=== PATIENT | female | born 1955 | race Caucasian/White ===

== ENCOUNTER 2017-08-20 17:14 | Inpatient (IN) | payer OTHER ==
[~2017-08-20] VITALS: Ht 165.1 cm; Wt 108.9 kg
[~2017-08-20 17:14] MED LIST: ANTIVERT25 MG PO; ASPIRIN EC325 M2 PO; BENADRYL25 MG PO; CLONAZEPAM2 M2 PO; COLACE100 M1 PO; HYDROCODON-ACE1 EAC3 PO; HYDROXYZINE HCL25 M2 PO; MIRALAX17 G1 PO; OXYCODONE HCL10 M2 PO; OXYCONTIN10 M1 PO; PERCOCET 5-3251 EACH PO; TRAZODONE HCL300 M1 PO; TRIAMCINOLONE A15 G3 TOP
[2017-08-20] MEDS ORDERED: OXYCODONE-ACET1 EAC1 PO (19:50)
[2017-08-20] MEDS ORDERED: ASPIRIN EC325 M2 PO (19:51)
[2017-08-20] MEDS ORDERED: MOVANTIK12.5 M1 PO (19:51)
[2017-08-20] MEDS ORDERED: MELATONIN10 M5 PO (19:52)
--- NOTE | 2017-08-20 20:40 | RADIOLOGY REPORT ---
EXAMINATION: XR HAND, RIGHT CLINICAL INFORMATION: Swelling, tenderness in the right hand. Fracture. COMPARISON: None TECHNIQUE: PA, lateral, and oblique views of the right hand. FINDINGS: Soft tissue swelling is present at the thumb and, to a lesser extent, other portions of the hand. No fracture or malalignment. Bones are osteopenic. There is mild to moderate osteoarthritis at the first CMC joint. More minimal osteophyte is present at the thumb MCP and interphalangeal joints. Cortical irregularity at the fifth metacarpal shaft may be due to an old healed fracture. No erosions. No soft tissue calcifications. IMPRESSION: Swelling in the right hand, most notably at the thumb. No acute osseous abnormalities. Mild multifocal osteoarthritis, most pronounced at the first CMC joint.
[2017-08-20 21:35] LABS: ABSOLUTE BASOPHIL COUNT 0 /CUMM (0.0-0.2); ABSOLUTE EOSINOPHIL COUNT 0.2 /CUMM (0.0-0.7); ABSOLUTE GRANULOCYTE CT 2.6 /CUMM (1.4-6.5); ABSOLUTE MONOCYTE COUNT 0.3 /CUMM (0.10-0.60); BASOPHIL % 0.9 % (0.0-2.0); EOSINOPHIL % 3.7 % (0-5); GRANULOCYTE % 63.3 % (42.2-75.2); MEAN CORPUSCULAR HGB 26.9 PG (27.0-31.0); MEAN CORPUSCULAR HGB CONC 32.9 G/DL (33.0-37.0); MEAN CORPUSCULAR VOLUME 81.7 FL (81.0-99.0); MEAN PLATELET VOLUME 8.4 FL (7.4-10.4); PLATELET COUNT 237 /CUMM (130-400); RBC DISTRIBUTION WIDTH 15.1 % (11.5-14.5); WHITE BLOOD CELL COUNT 4.1 /CUMM (4.8-10.8)
--- NOTE | 2017-08-20 21:44 | ED GENERAL ADULT ---
History of Present Illness General Chief Complaint: Hand or Wrist Injury Stated Complaint: PT RT HAND HAS CELLULITIS Source: patient Exam Limitations: no limitations Vital Signs & Intake/Output Vital Signs & Intake/Output Vital Signs Date Time Temp Pulse Resp B/P B/P Pulse O2 O2 Flow FiO2 Mean Ox Delivery Rate 08/21 0212 98.3 93 18 132/64 95 Room Air 08/21 0049 98.8 88 18 132/84 99 Room Air 08/20 2217 98 Room Air 08/20 1737 98.8 97 18 134/84 98 Room Air ED Intake and Output 08/21 0000 08/20 1200 Intake Total Output Total Balance Patient 240 lb Weight Weight Reported by Patient Measurement Method Allergies Coded Allergies: metronidazole (From FLAGYL) (Severe, RASH 08/20/17) cephalexin (From KEFLEX) (HANDS AND FEET HOT 06/07/15) levofloxacin (From LEVAQUIN) (SUPRA-PUBIC PAIN 06/07/15) Reconcile Medications Aspirin (Ecotrin*) 325 MG TABLET.DR 1 TAB PO DAILY HEART/BLOOD (Reported) Clonazepam 2 MG TABLET 1 TAB PO QPM SLEEP (Reported) Melatonin 10 MG CAPSULE 1 CAP PO DAILY SUPPLEMENT (Reported) Naloxegol Oxalate (Movantik) 12.5 MG TABLET 1 TAB PO PRN GI (Reported) Oxycodone HCl/Acetaminophen (Oxycodone-Acetaminophen 10-325) 10 MG-325 MG TABLET 1 TAB PO 4XDP PRN PAIN (Reported) Trazodone HCl 300 MG TABLET 1 TAB PO QPM SLEEP (Reported) Triage Note: 62 YO FEMALE TO TRIAGE FOR EVAL OF R HAND. STATES WAS SEEN ON WEDNESDAY FOR THE URGENT CARE FOR WHAT SHE THOUGHT WAS EITHER A SPIDER BITE OR A BURN TO HER R HAND. REPORTS SHE GOT A TETANUS AND SENT HOME ON ANTIBITIOCS. REPORTS SWELLING IS BETTER BUT PAIN TO HADN HAS INCREASED. Triage Nurses Notes Reviewed? yes Onset: Abrupt Duration: day(s): (5), constant, continues in ED, getting worse Timing: single episode today Injury Environment: home Severity: mild, moderate Severity Numbers: 7 No Modifying Factors: none LMP (ages 10-50): unknown : No Patient currently breastfeeds: No HPI: 61-year-old female history of hypertension presents for evaluation of pain and swelling in her right hand. Patient reports symptoms have been present for the past 5 days and getting worse. Patient reports that she is unsure what caused the symptoms initially. She takes maybe she was bitten by a spider or suffered a minor burn. She states she went to an urgent care when symptoms first started was placed on Bactrim which he took for 5 days of any improvement. The redness is getting the spread the pain is getting worse. She is able to move her fingers without much difficulty. She has not had fevers he is not a diabetic. No discharge. No numbness or tingling (Tejinder Hartmann) Past History Travel History Traveled to [place] past 21 day No Medical History Any Pertinent Medical History? see below for history Cardiovascular: hypertension Respiratory: bronchitis Gastrointestinal: GERD, irritable bowel syndrome Endocrine: obesity History of MRSA: No History of VRE: No History of CDIFF: No Surgical History Surgical History: knee replacement Psychosocial History Who do you live with Spouse What is your primary language [place]an Tobacco Use: Never used Family History Hx Contributory? No (Tejinder Hartmann) Review of Systems Review of Systems Constitutional: Reports: no symptoms. EENTM: Reports: no symptoms. Respiratory: Reports: no symptoms. Cardiovascular: Reports: no symptoms. GI: Reports: no symptoms. Genitourinary: Reports: no symptoms. Musculoskeletal: Reports: see HPI, joint pain, joint swelling. Skin: Reports: see HPI, erythema. Neurological/Psychological: Reports: no symptoms. Hematologic/Endocrine: Reports: no symptoms. Immunologic/Allergic: Reports: no symptoms. All Other Systems: Reviewed and Negative (Tejinder Hartmann) Physical Exam Physical Exam General Appearance: well developed/nourished, no apparent distress, alert, awake Head: atraumatic, normal appearance Eyes: Bilateral: normal appearance, PERRL, EOMI. Ears, Nose, Throat: hearing grossly normal Neck: normal inspection, supple, full range of motion Respiratory: normal breath sounds, chest non-tender, no respiratory distress, lungs clear Cardiovascular: regular rate/rhythm, normal peripheral pulses Peripheral Pulses: 2+ radial (R), 2+ radial (L) Gastrointestinal: soft, non-tender Back: normal inspection, normal range of motion, no vertebral tenderness Extremities: normal range of motion, THE RIGHT HAND IS DIFFUSELY SWOLLEN AND TENDER TO PALPATION. tHERE IS ERYTHEMA TRACKING UP THE HAND TO THE WRIST. fULL RANGE OF MOTION OF THE WRIST AND HAND IS INTACT. nO LYMPHATIC STREAKING NO FOCAL FLUCTUANT AREAS Neurologic/Psych: no motor/sensory deficits, awake, alert, oriented x 3, normal gait, normal mood/affect Skin: intact, normal color, warm/dry Lymphatic: no anterior cervical chirag Core Measures ACS in differential dx? No CVA/TIA Diagnosis: No Sepsis Present: No Sepsis Focused Exam Completed? No (Raghavendra LOZA,Tejinder) Progress Differential Diagnoses I considered the following diagnoses in my evaluation of the patient: [ Cellulitis tenosynovitis abscess DVT sepsis] Plan of Care: Orders Procedure Date/time Status Nothing by Mouth 08/21 B Active CBC WITHOUT DIFFERENTIAL 08/21 599 Active BASIC ELECTROLYTES PLUS BUN&CR 08/21 599 Active Weight 08/21 116 Complete Vital Signs 08/21 116 Complete Teach/Educate 08/21 116 Active Pain Treatment and Response 08/21 116 Active Nutritional Intake, Monitor 08/21 116 Active Isolation 08/21 116 Active Intake & Output 08/21 116 Active Patient Care Conference 08/21 116 Active Activity/Ambulation 08/21 116 Active Pathway - chart 08/20 2343 Active Patient Data 08/20 2302 Active Saline Lock 08/20 230 Active Misc Message 08/20 230 Active ED Holding Orders 08/20 230 Active Admit to inpatient 08/20 230 Active Vital Signs 08/20 230 Active Code Status 08/20 230 Active Intake & Output 08/20 2217 Complete Add-on Test (ER Only) 08/20 2206 Active EKG 08/20 2206 Active TROPONIN LEVEL 08/20 2124 Complete BLOOD CULTURE 08/20 1924 Active LACTIC ACID 08/20 1924 Complete COMPREHENSIVE METABOLIC PANEL 08/20 1924 Complete CBC WITHOUT DIFFERENTIAL 08/20 1924 Complete House Staff 08/20 UNK Active VTE Mechanical Prophylaxis 08/20 UNK Active Vital Signs 08/20 UNK Complete Intake & Output 08/20 UNK Active Activity/Ambulation 08/20 UNK Active Current Medications Sig/Ange Start time Last Medication Dose Stop Time Status Admin Trazodone HCl 300 MG QPM 08/21 2100 AC (Desyrel) Aspirin Buffered 325 MG DAILY 08/21 09 AC (Ecotrin) Enoxaparin Sodium 40 MG DAILY 08/21 09 AC (Lovenox) Ampicillin Sodium/ 3,000 MG Q6 08/21 06 AC Sulbactam Sodium (Unasyn) Sodium Chloride 100 ML (Normal Saline 0.9%) Acetaminophen 650 MG Q6P PRN 08/20 2344 AC (Tylenol) Clonazepam 2 MG QPM 08/20 2344 AC 08/21 (Klonopin 1MG Tab) 08/28 2343 020 Melatonin 10 MG QPM 08/20 234 AC 08/21 (Melatonin) 0200 Oxycodone/ 2 TAB Q6P PRN 08/20 2344 AC 08/21 Acetaminophen 0138 (Percocet) Laboratory Tests 08/20/17 2317: Lactic Acid Cancelled 08/20/17 2225: Lactic Acid Cancelled 08/20/175: Anion Gap 13, Estimated GFR > 60, BUN/Creatinine Ratio 12.5, Glucose 102 H, Lactic Acid 0.9, Calcium 9.4, Total Bilirubin 0.4, AST 40 H, ALT 57 H, Alkaline Phosphatase 143 H, Troponin I < 0.01, Total Protein 7.4, Albumin 4.0, Globulin 3.4, Albumin/Globulin Ratio 1.2, CBC w Diff NO MAN DIFF REQ, RBC 4.90, MCV 81.7, MCH 26.9 L, MCHC 32.9 L, RDW 15.1 H, MPV 8.4, Gran % 63.3, Lymphocytes % 25.2, Monocytes % 6.9, Eosinophils % 3.7, Basophils % 0.9, Absolute Granulocytes 2.6, Absolute Lymphocytes 1.0 L, Absolute Monocytes 0.3, Absolute Eosinophils 0.2, Absolute Basophils 0 08/20/17 2017: Lactic Acid Cancelled Microbiology 08/20 2044 BLOOD: Blood Culture - RECD 08/20 2029 BLOOD: Blood Culture - RECD Patient is here with cellulitis of the right hand. She failed outpatient treatment with Bactrim. Is no purulent discharge she is afebrile. Labs were obtained did not show anything acute findings. Consider tenosynovitis but patient's range of motion is maintained without much difficulty. Patient will require admission to the hospital for further evaluation and treatment of cellulitis. Patient started on Unasyn. Case discussed with Dr. Mckeon he agrees. Initial ED EKG: normal sinus rhythm, RBBB, nonspecific ST T wave chg (DIFFUSE ) (Raghavendra LOZA,Tejinder) Departure Departure Disposition: STILL A PATIENT Condition: Stable Clinical Impression Primary Impression: Cellulitis Qualifiers: Site of cellulitis: extremity Site of cellulitis of extremity: upper extremity Laterality: right Qualified Code: L03.113 - Cellulitis of right upper limb Referrals: Aristeo Trinidad MD (PCP/Family) Departure Forms: Customer Survey General Discharge Information Admission Note Spoke With: Nils Amaro MD Documentation of Exam: Documentation of any treatments & extenuating circumstances including Concerns Regarding Discharge (functional status, medication knowledge or non-compliance, living conditions, etc.) that warrant an admission rather than observation: [ Serial labs, IV antibiotics, hand surgery, follow-up cultures patient is failed outpatient treatment. She'll require IV antibiotics] (Tejinder Hartmann) PA/BUSINESS PROFESSOR Co-Sign Statement Statement: ED Attending supervision documentation- [x] I saw and evaluated the patient. I have also reviewed all the pertinent lab results and diagnostic results. I agree with the findings and the plan of care as documented in the PA's/BUSINESS PROFESSOR's documentation. 08/20/17, 22:23... pt with right redness, tenderness, swelling, having failed out patient abx, merits iv abx, admssion [] I have reviewed the ED Record and agree with the PA's/BUSINESS PROFESSOR's documentation. [] Additions or exceptions (if any) to the PAs/BUSINESS PROFESSOR's note and plan are summarized below: [] (Linda LOPEZ,Amor Son) Critical Care Note Critical Care Note Critical Care Time: non-applicable (Tejinder Hartmann)
--- NOTE | 2017-08-20 23:36 | History & Physical ---
Micky Singh 08/20/17 8785: General Information and HPI MD Statement: I have seen and personally examined ENE FAULKNER and documented this H&P. The patient is a 62 year old F who presented with a patient stated chief complaint of [r hand swelling and pain x 1 week]. Source of Information: patient History of Present Illness: Ene Faulkner is a 62-year-old female with a past medical history of hypertension, GERD, IBS, obesity, presented to the ED with a one-week history of right hand pain, tenderness, erythema, swelling. Patient states that she thought she either burned, or had an insect bite, interspace region between her first and second digit of her right hand. She cannot remember discrete puncture or trauma to the region. Her hand, however began to turn red, and had some localized swelling. The skin also began to slough off. She decided to go to an urgent care center on Wednesday, where she received a tetanus shot and prescribed her Bactrim for 4 days. She completed the course, however her hand continued to swell, and started extending proximally towards the wrist, the pain increased, and the hand became "hotter". She came to the ED as she was worried that she might have necrotizing fasciitis. Onsetapproximately 1 week ago. Progressively getting worse. Provocation/palliationoxycodone helps the pain. Patient has back issues and her prescribed oxycodone comes the pain for her. Qualitypatient describes the pain as "achy" Radiationthe pain travels from the interspace region between the first and second digit into the digits themselves, has not traveled approximately towards the wrist. Severitypain was initially a 3, has progressed to a 6 or a 7 currently Timepain is constant, does not wax or wane. Has not noticed a temporal relationship with the pain. Patient denies fevers, chills, night sweats, headaches, any identifiable trauma to the region. Past History Travel History Traveled to [place] past 21 day No Medical History Cardiovascular: hypertension Respiratory: bronchitis Gastrointestinal: GERD, irritable bowel syndrome Endocrine: obesity History of MRSA: No History of VRE: No History of CDIFF: No Tetanus Vaccine: 08/16/17 (per patient) Tetanus Status: up to date Surgical History Surgical History: knee replacement Past Family/Social History Psychosocial History Smoking Status: Never Smoked ETOH Use: occasional use Illicit Drug Use: denies illicit drug use Living Will? 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 Ambulation: independent IADLs Independent: shopping, housework, finances, food prep, telephone, transportation , medication admin. Employment History Profession/Employer Psychotherapist Review of Systems Review of Systems Constitutional: Reports: see HPI. Exam & Diagnostic Data Last 24 Hrs of Vital Signs/I&O Vital Signs Date Time Temp Pulse Resp B/P B/P Pulse O2 O2 Flow FiO2 Mean Ox Delivery Rate 08/20 2217 98 Room Air 08/20 1737 98.8 97 18 134/84 98 Room Air Physical Exam General Appearance Alert, Oriented X3, Cooperative, No Acute Distress Skin Erythema R hand ascending proxmally towards wrist, Swelling,Heat to dorsum of R hand Skin Temp/Moisture Exam: Hot/Dry Cardiovascular Regular Rate, Normal S1, Normal S2 Lungs Clear to Auscultation, Normal Air Movement Abdomen Soft, No Tenderness, obese Neurological Normal Tone, Sensation Intact Extremities Normal Pulses, limited adduction and flexion of R thumb 2/2 pain/ swelling Vascular Normal Pulses Last 24 Hrs of Labs/Flaco: Laboratory Tests 08/20/17 2317: Lactic Acid Cancelled 08/20/17 2225: Lactic Acid Cancelled 08/20/172124: Anion Gap 13, Estimated GFR > 60, BUN/Creatinine Ratio 12.5, Glucose 102 H, Lactic Acid 0.9, Calcium 9.4, Total Bilirubin 0.4, AST 40 H, ALT 57 H, Alkaline Phosphatase 143 H, Troponin I < 0.01, Total Protein 7.4, Albumin 4.0, Globulin 3.4, Albumin/Globulin Ratio 1.2, CBC w Diff NO MAN DIFF REQ, RBC 4.90, MCV 81.7, MCH 26.9 L, MCHC 32.9 L, RDW 15.1 H, MPV 8.4, Gran % 63.3, Lymphocytes % 25.2, Monocytes % 6.9, Eosinophils % 3.7, Basophils % 0.9, Absolute Granulocytes 2.6, Absolute Lymphocytes 1.0 L, Absolute Monocytes 0.3, Absolute Eosinophils 0.2, Absolute Basophils 0 08/20/17 2017: Lactic Acid Cancelled Microbiology 07/06 2045 BLOOD: Blood Culture - RECD 08/20 2029 BLOOD: Blood Culture - RECD Diagnostic Data Other Results IMPRESSION: Swelling in the right hand, most notably at the thumb. No acute osseous abnormalities. Mild multifocal osteoarthritis, most pronounced at the first CMC joint. Assessment/Plan Assessment: Ene Faulkner is a 62-year-old female with a past medical history of hypertension, GERD, IBS, obesity, presented to the ED with a one-week history of right hand pain, tenderness, erythema, swelling. Being treated for cellulitis that failed outpatient therapy. Differentials include Cellulitis, Osteomyelitis, Erysipalas, Compartment syndrome (doubt), Necrotizing fasciitis (doubt), Abscess Patient did not have systemic signs or radiographic evidence of osteomyelitis. Patient also did not have any pain upon passive range of motion. Pt did not have any fluctuant areas. Erythematous areas were smooth, flat; not sandpaper-like. #Cellulitis failed outpatient therapy: due to the fact that patient took a coure of bactrim without improvement, patient will be admitted for IV antibiotics for R hand cellulitis. -Admit to general medicine floors -IV Unasyn, recieved one dose in the ED. Will continue course, adjust pending culture results. -Pt states an allergy to Keflex and levaquin-will tailor antibiotic choice when switching to PO. -Follow up on culture. -Pt has sharp line of demarcation between erythema and normal skin. Will gretta line, monitor progression or regression of erythema -Xray shows no evidence of osteomyelitis, no evidence of acute trauma -Afebrile, no leukocytosis, no systemic signs #Back Pain -will restart home meds DVT ppx + ALPS Disposition Regular Diet IV Access: Peripheral IV Full Code As Ranked By This Provider Problem List: 1. Cellulitis Qualifiers Site of cellulitis: extremity Site of cellulitis of extremity: upper extremity Laterality: right Qualified Code: L03.113 - Cellulitis of right upper limb Core Measures/Misc (11/01) Acute Coronary Syndrome ACS Diagnosis: No Congestive Heart Failure Congestive Heart Failure Diagnosis No Cerebrovascular Accident CVA/TIA Diagnosis: No VTE (View Protocol) VTE Risk Factors Age>40 No Mechanical VTE Prophylaxis d/t N/A MechProphylax Ordered No VTE Pharm Prophylaxis d/t NA PharmProphylax ordered Sepsis (View protocol) Sepsis Present: No If YES complete Sepsis Event Note If YES complete Sepsis Event Note Carney,Li Virgilio Sebastian 08/21/17 0133: Core Measures/Misc (11/01) Sepsis (View protocol) If YES complete Sepsis Event Note If YES complete Sepsis Event Note Resident Review Statement Resident Statement: examined this patient, discussed with internal medicine physician assistant, agreed with internal medicine physician assistant, discussed with family, reviewed EMR data (avail), discussed with nursing , discussed with case mgmt, reviewed images, amended to note Other Findings: Ms. Faulkner is a 62yo F w/ PMh of hypertension, GERD, IBS, obesity, presented to the ER with swelling of hands possibly due to burn/spider bite at R hand web region that later spreaded out to the whole right hand, and patient had failed outpatient treatment of bactrim x 4 days. During our clinical interaction, patient denied recent travel/sick contacts, fever/lightheadedness/diaphoresis/night sweat/weight change/cough/SOB/Chest Pain /Palpitation/Abdominal pain/bowel movement or urinary abnormality, or other skin /musculoskeletal/neurological/mood disorders, or dietary/appetite change. -Smoking: Denied -Alcohol: Social -Rec Drugs: Denied On admission, Vitals: Stable afebrile, BP 134/88, saturating 98% on RA Physical exam -Gen.: AO x3, cooperative, no distress, -HEENT: NCAT, PERRL, EOMI, anicteric sclera, moist mucous membranes -Cardio: Normal S1/S2 without significant murmurs/gallops/rubs -Pulmonary: grossly normal air movement w/ clear auscultation -Abdomen: Soft, nontender, nondistended, bowel sounds intact -Neuro: Awake and alert, cranial nerves II through XII grossly intact -Extremity: R hand swelling w/ mild tenderness on palpation, along w/ elevation of skin temperature, clear demarkation of swelling at wrist level, sensations grossly intact, fingers ROM mildly restricted however mostly due to pain. Other extremities are Normal pulses/capillary refill, no cyanosis/clubbing/edema -CBC: Mild leukopenia 4.1, H/H stable, otherwise unremarkable -BMP: Unremarkable -Hand X-ray: Swelling in the right hand, most notably at the thumb. No acute osseous abnormalities. -EKG: NSR w/o significant ST-T abnormalities. -Interventions in ER: Unasyn x 1 Problem list/Assessment/Hospital Course: #Right hand cellulitis, w/o signs of necrotizing fascitis/osteomyelitis #Mild Leukopenia #PMH of HTN, GERD, IBS - Admit to General medicine, vitals per protocol - Will start empiric coverage w/ Unasyn 3g q6 IV, and tailor per culture. Patient had keflex allergy thus would avoid cephalosporin, and she stated she had a cat at home, despite may not have scratched her right hand. - Continue home meds - Pending blood culture - Pain per pathway - Close monitoring of R hand on sensation deficit/increased swelling/tenderness/ increased limited ROM. DVT prophylaxis Pharm PPX + ALPS Regular Diet IV Access: Peripheral IV Full Code Prem LOPEZ,[place] 08/21/17 0544: General Information and HPI MD Statement: I have seen and personally examined ENE FAULKNER and documented this H&P. The patient is a 62 year old F who presented with a patient stated chief complaint of [hand infection]. Source of Information: patient Allergies/Medications Allergies: Coded Allergies: metronidazole (From FLAGYL) (Severe, RASH 08/20/17) cephalexin (From KEFLEX) (HANDS AND FEET HOT 06/07/15) levofloxacin (From LEVAQUIN) (SUPRA-PUBIC PAIN 06/07/15) Home Med list Aspirin (Ecotrin*) 325 MG TABLET.DR 1 TAB PO DAILY HEART/BLOOD (Reported) Clonazepam 2 MG TABLET 1 TAB PO QPM SLEEP (Reported) Melatonin 10 MG CAPSULE 1 CAP PO DAILY SUPPLEMENT (Reported) Naloxegol Oxalate (Movantik) 12.5 MG TABLET 1 TAB PO PRN GI (Reported) Oxycodone HCl/Acetaminophen (Oxycodone-Acetaminophen 10-325) 10 MG-325 MG TABLET 1 TAB PO 4XDP PRN PAIN (Reported) Trazodone HCl 300 MG TABLET 1 TAB PO QPM SLEEP (Reported) Past Family/Social History Psychosocial History Smoking Status: Never Smoked ETOH Use: occasional use Review of Systems Review of Systems Constitutional: Reports: see HPI. Exam & Diagnostic Data Last 24 Hrs of Vital Signs/I&O Vital Signs Date Time Temp Pulse Resp B/P B/P Pulse O2 O2 Flow FiO2 Mean Ox Delivery Rate 08/21 0212 98.3 93 18 132/64 95 Room Air 08/21 0049 98.8 88 18 132/84 99 Room Air 08/20 2217 98 Room Air 08/20 1737 98.8 97 18 134/84 98 Room Air Intake & Output 08/21 0800 08/21 0000 08/20 1600 Intake Total Output Total Balance Patient 240 lb 240 lb Weight Weight Reported by Patient Reported by Patient Measurement Method Physical Exam General Appearance Alert, Oriented X3, Cooperative, No Acute Distress Skin Erythema R hand ascending proxmally towards wrist, Swelling,Heat to dorsum of R hand HEENT Atraumatic, PERRLA, EOMI Neck Supple Cardiovascular Regular Rate, Normal S1, Normal S2 Lungs Clear to Auscultation Abdomen Normal Bowel Sounds, Soft, No Tenderness Neurological Normal Gait Last 24 Hrs of Labs/Flaco: Laboratory Tests 08/20/17 2317: Lactic Acid Cancelled 08/20/172224: Lactic Acid Cancelled 08/20/172124: Anion Gap 13, Estimated GFR > 60, BUN/Creatinine Ratio 12.5, Glucose 102 H, Lactic Acid 0.9, Calcium 9.4, Total Bilirubin 0.4, AST 40 H, ALT 57 H, Alkaline Phosphatase 143 H, Troponin I < 0.01, Total Protein 7.4, Albumin 4.0, Globulin 3.4, Albumin/Globulin Ratio 1.2, CBC w Diff NO MAN DIFF REQ, RBC 4.90, MCV 81.7, MCH 26.9 L, MCHC 32.9 L, RDW 15.1 H, MPV 8.4, Gran % 63.3, Lymphocytes % 25.2, Monocytes % 6.9, Eosinophils % 3.7, Basophils % 0.9, Absolute Granulocytes 2.6, Absolute Lymphocytes 1.0 L, Absolute Monocytes 0.3, Absolute Eosinophils 0.2, Absolute Basophils 0 08/20/17 2017: Lactic Acid Cancelled Microbiology 08/20 2044 BLOOD: Blood Culture - RECD 08/20 2029 BLOOD: Blood Culture - RECD Core Measures/Misc (11/01) Sepsis (View protocol) If YES complete Sepsis Event Note If YES complete Sepsis Event Note Attending MD Review Statement Attending Statement Attending MD Statement: examined this patient, discuss w/resident/PA/ENGINE SERVICE REPAIRER, agreed w/resident/PA/ENGINE SERVICE REPAIRER, amended to note Attending Assessment/Plan: This patient is a 62-year-old female with a significant past medical history of hypertension, GERD, IBS, obesity, presented to the ED with a one-week history of right hand pain, tenderness, erythema, swelling. Patient states that she thought she either burned, or had an insect bite, interspace region between her first and second digit of her right hand. She cannot remember discrete puncture or trauma to the region. Her hand, however began to turn red, and had some localized swelling. The skin also began to slough off. She decided to go to an urgent care center on Wednesday, where she received a tetanus shot and prescribed her Bactrim for 4 days. She completed the course, however her hand continued to swell, and started extending proximally towards the wrist, the pain increased, and the hand became "hotter". She came to the ED as she was worried that she might have necrotizing fasciitis. The patient has 2 cats. Upon evaluation she was found to have a normal WBC count and remained afebrile. Allergies to Flagyl, Keflex and Levaquin. She was started on Unasyn. if doesnt respond quickly will get a hand surgeon evaluation home meds restarted
[2017-08-21 02:12] VITALS: BP 132/64
--- NOTE | 2017-08-21 05:52 | PN- Housestaff ---
Subjective Follow-up For: R hand cellulitis Subjective: Pt seen and examined at bedside. Pt was admitted last night for R hand cellulitis. No progression of erythema. Pt states 3rd and 4th digit now have pain, but agrees swelling has subsided. Denies systemic signs, denies drainage, denies pain with passive movement. Review of Systems Constitutional: Reports: see HPI. Objective Last 24 Hrs of Vital Signs/I&O Vital Signs Date Time Temp Pulse Resp B/P B/P Pulse O2 O2 Flow FiO2 Mean Ox Delivery Rate 08/22 643 98.2 74 18 132/78 95 Room Air 08/21 0212 98.3 93 18 132/64 95 Room Air 08/21 0049 98.8 88 18 132/84 99 Room Air 08/20 2217 98 Room Air 08/20 1737 98.8 97 18 134/84 98 Room Air Intake & Output 08/21 0800 08/21 0000 08/20 1600 Intake Total 360 Output Total 200 Balance 160 Intake, IV 120 Intake, Oral 240 Output, Urine 200 Patient 240 lb 240 lb Weight Weight Reported by Patient Reported by Patient Measurement Method Physical Exam General Appearance: Alert, Oriented X3, Cooperative, No Acute Distress Skin: erythema dorsum right hand extending proximally to wrist, swelling dorsum R hand Skin Temp/Moisture Exam: Warm/Dry Cardiovascular: Regular Rate, Normal S1, Normal S2 Lungs: Clear to Auscultation, Normal Air Movement Abdomen: Soft, No Tenderness, obese Neurological: Sensation Intact Extremities: No Edema Current Medications: Current Medications Sig/Ange Start time Last Medication Dose Route Stop Time Status Admin Acetaminophen 650 MG Q6P PRN 08/20 2345 AC 08/21 PO 0634 Ampicillin Sodium/ 3,000 MG Q6 08/21 06 AC 08/21 Sulbactam Sodium IV 0553 Sodium Chloride 100 ML Ampicillin Sodium/ 0 .STK-MED ONE 08/20 2241 DC Sulbactam Sodium .ROUTE Ampicillin Sodium/ 3,000 MG ONCE ONE 08/20 2230 DC 08/20 Sulbactam Sodium IV 08/20 2259 2257 Sodium Chloride 100 ML Aspirin Buffered 325 MG DAILY 08/21 899 AC PO Clonazepam 2 MG QPM 08/20 2345 AC 08/21 PO 08/27 2344 0200 Enoxaparin Sodium 40 MG DAILY 08/21 899 AC SC Melatonin 10 MG QPM 08/20 2345 AC 08/21 PO 0200 Oxycodone/ 2 TAB Q6P PRN 08/20 2345 AC 08/21 Acetaminophen PO 0138 Trazodone HCl 300 MG QPM 08/21 2100 AC PO Trazodone HCl 300 MG ONCE ONE 08/21 0145 DC 08/21 PO 08/21 0146 0200 Last 24 Hrs of Lab/Flaco Results Last 24 Hrs of Labs/Mics: Laboratory Tests 08/20/17 2317: Lactic Acid Cancelled 08/20/17 2225: Lactic Acid Cancelled 08/20/17 2125: Anion Gap 13, Estimated GFR > 60, BUN/Creatinine Ratio 12.5, Glucose 102 H, Lactic Acid 0.9, Calcium 9.4, Total Bilirubin 0.4, AST 40 H, ALT 57 H, Alkaline Phosphatase 143 H, Troponin I < 0.01, Total Protein 7.4, Albumin 4.0, Globulin 3.4, Albumin/Globulin Ratio 1.2, CBC w Diff NO MAN DIFF REQ, RBC 4.90, MCV 81.7, MCH 26.9 L, MCHC 32.9 L, RDW 15.1 H, MPV 8.4, Gran % 63.3, Lymphocytes % 25.2, Monocytes % 6.9, Eosinophils % 3.7, Basophils % 0.9, Absolute Granulocytes 2.6, Absolute Lymphocytes 1.0 L, Absolute Monocytes 0.3, Absolute Eosinophils 0.2, Absolute Basophils 0 08/20/17 2017: Lactic Acid Cancelled Microbiology 08/20 2044 BLOOD: Blood Culture - RECD 08/20 2029 BLOOD: Blood Culture - RECD Assessment/Plan Assessment: Ene Faulkner is a 62-year-old female with a past medical history of hypertension, GERD, IBS, obesity, presented to the ED with a one-week history of right hand pain, tenderness, erythema, swelling. Being treated for cellulitis that failed outpatient therapy. Differentials include Cellulitis, Osteomyelitis, Erysipalas, Compartment syndrome (doubt), Necrotizing fasciitis (doubt), Cat Scratch, Abscess Patient did not have systemic signs or radiographic evidence of osteomyelitis. Patient also did not have any pain upon passive range of motion. Pt did not have any fluctuant areas. Erythematous areas were smooth, flat; not sandpaper-like. #Cellulitis failed outpatient therapy: due to the fact that patient took a coure of bactrim without improvement, patient will be admitted for IV antibiotics for R hand cellulitis. -Admit to general medicine floors -IV Unasyn, recieved one dose in the ED. Will continue course, adjust pending culture results. -Pt states an allergy to Keflex and levaquin-will tailor antibiotic choice when switching to PO. -Follow up on culture. -Pt has sharp line of demarcation between erythema and normal skin. Will gretta line, monitor progression or regression of erythema. Currently erythema is regressing. If no clinical improvement will seek hand surgeon eval. -Xray shows no evidence of osteomyelitis, no evidence of acute trauma -Afebrile, no leukocytosis, no systemic signs #Back Pain -will restart home meds DVT ppx + ALPS Disposition Regular Diet IV Access: Peripheral IV Full Code Problem List: 1. Cellulitis Pain Ratin Pain Location: R hand Pain Goal: Pain 7 or less Pain Plan: PRN Tomorrow's Labs & Rationales: NA
[2017-08-21 06:44] VITALS: BP 132/78
[2017-08-21 08:38] LABS: ABSOLUTE BASOPHIL COUNT 0 /CUMM (0.0-0.2); ABSOLUTE EOSINOPHIL COUNT 0.1 /CUMM (0.0-0.7); ABSOLUTE GRANULOCYTE CT 2.6 /CUMM (1.4-6.5); ABSOLUTE MONOCYTE COUNT 0.4 /CUMM (0.10-0.60); BASOPHIL % 0.4 % (0.0-2.0); EOSINOPHIL % 2.9 % (0-5); GRANULOCYTE % 64.1 % (42.2-75.2); HEMATOCRIT 35.9 % (37-47); MEAN CORPUSCULAR HGB 27.2 PG (27.0-31.0); MEAN CORPUSCULAR HGB CONC 33.3 G/DL (33.0-37.0); MEAN CORPUSCULAR VOLUME 81.6 FL (81.0-99.0); PLATELET COUNT 201 /CUMM (130-400); RBC DISTRIBUTION WIDTH 15.1 % (11.5-14.5); WHITE BLOOD CELL COUNT 4.1 /CUMM (4.8-10.8)
--- NOTE | 2017-08-21 10:55 | PN- Att Addend ---
Attending Addendum Attending Brief Note Pt was seen and evalauted. Briefly, Ms. Faulkner is a 62-year-old female with PMH of hypertension, GERD, IBS, obesity, p/w one-week history of right hand pain, tenderness, erythema, swelling. Failed outpt abx tx (Bactrim). Currently on IV Unasyn GEN: reports swelling purchase price analyst: swelling and erythema involving dorsum of hand LUNGS: CTAB Labs/Diagnostics reviewed A/P --cont to monitor on IV abx --Add NSAIDs to help --rest of the plan as per residents note
[2017-08-21 14:22] VITALS: BP 124/80
[2017-08-21] MEDS ORDERED: LEVSIN0.125 M1 PO (20:25)
[2017-08-21 21:31] VITALS: BP 120/76
[2017-08-22 06:22] VITALS: BP 122/84
--- NOTE | 2017-08-22 08:27 | PN- Housestaff ---
Von Gomez 08/22/17825: Subjective Follow-up For: Right hand pain and cellulitis Complaints: pain scale (0-10) (8) Subjective: She seen and examined at the bedside. Patient complained of continuing right hand pain, but was due for Percocet shortly. No progression of erythema, but agrees swelling has subsided some. Denies systemic symptoms and pain with passive movement. Review of Systems Constitutional: Reports: no symptoms. Musculoskeletal: Denies: no symptoms (pain in right hand). Objective Last 24 Hrs of Vital Signs/I&O Vital Signs Date Time Temp Pulse Resp B/P B/P Pulse O2 O2 Flow FiO2 Mean Ox Delivery Rate 08/22 0622 98.2 74 18 122/84 97 08/21 2131 97.7 73 18 120/76 96 08/21 1422 98.2 78 18 124/80 98 Room Air Intake & Output 08/22 1600 08/22 0800 08/22 0000 Intake Total 260 130 Output Total 450 Balance -190 130 Intake, IV 260 130 Output, Urine 450 Physical Exam General Appearance: Alert, Oriented X3, Cooperative, No Acute Distress Skin: No Rashes, No Breakdown Skin Temp/Moisture Exam: Warm/Dry HEENT: Atraumatic, PERRLA, EOMI Neck: Supple, No JVD, No thryomegaly Cardiovascular: Regular Rate, Normal S1, Normal S2, No Murmurs Lungs: Clear to Auscultation, Normal Air Movement Abdomen: Soft, No Tenderness, No Hepatospenomegaly Neurological: Normal Speech, Strength at 5/5 X4 Ext, Sensation Intact Extremities: swelling and edema of right hand Assessment/Plan Assessment: Ene Faulkner is a 62-year-old female with a past medical history of hypertension, GERD, IBS, obesity, presented to the ED with a one-week history of right hand pain, tenderness, erythema, swelling. Being treated for cellulitis that failed outpatient therapy. Differentials include Cellulitis, Osteomyelitis, Erysipalas, Compartment syndrome (doubt), Necrotizing fasciitis (doubt), Cat Scratch, Abscess Patient did not have systemic signs or radiographic evidence of osteomyelitis. Patient also did not have any pain upon passive range of motion. Pt did not have any fluctuant areas. Erythematous areas were smooth, flat; not sandpaper-like. Problem list: Plan: and switching to p.o. DVT prophylaxis: ALPS Patient is full code Problem List: 1. Cellulitis Pain Ratin Pain Location: Right hand Pain Goal: Pain 4 or less Pain Plan: As needed Tomorrow's Labs & Rationales: None Fletcher LOPEZ,[place] 08/22/17 1012: Attending MD Review Statement Attending Statement Attending MD Statement: examined this patient, discuss w/resident/PA/MANUAL EQUIPMENT MECHANIC, agreed w/resident/PA/MANUAL EQUIPMENT MECHANIC, reviewed EMR data (avail), discussed with nursing Attending Assessment/Plan: Pt was seen and evaluated. No overnight issues. Hand swelling & erythema significantly improved. VSS, remains afebrile -- consider switching to PO abx in am -- cont NSAID -- rest of the plan as per resident's note
[2017-08-22 14:19] VITALS: BP 130/68
[2017-08-22 20:52] VITALS: BP 118/68
[2017-08-23 06:52] VITALS: BP 135/89
--- NOTE | 2017-08-23 07:34 | PN- Housestaff ---
Micky Singh [birth year]: Subjective Follow-up For: R hand cellulitis Subjective: Pt seen and examined at bedside. Patient denied any acute events overnight. Patient denies any fever/chills/night sweats/chest pain/shortness of breath/ abdominal pain/lower extremity edema. Patient states that the erythema of the right hand has not progressed. Patient states that is not nearly as swollen as admission. Review of Systems Constitutional: Reports: see HPI. Objective Last 24 Hrs of Vital Signs/I&O Vital Signs Date Time Temp Pulse Resp B/P B/P Pulse O2 O2 Flow FiO2 Mean Ox Delivery Rate 08/24 651 98.0 68 18 135/89 98 08/22 205 98.1 70 18 118/68 97 08/22 1419 98.2 96 18 130/68 96 Room Air Intake & Output 08/23 1600 08/23 0800 08/23 0000 Intake Total 120 Output Total Balance 120 Intake, Oral 120 Physical Exam General Appearance: Alert, Oriented X3, Cooperative, No Acute Distress Skin: R hand erythema improving, swelling diminished Skin Temp/Moisture Exam: Warm/Dry Cardiovascular: Regular Rate, Normal S1, Normal S2 Lungs: Clear to Auscultation, Normal Air Movement Abdomen: Soft, No Tenderness Neurological: Sensation Intact Extremities: No Edema Current Medications: Current Medications Sig/Ange Start time Last Medication Dose Route Stop Time Status Admin Acetaminophen 650 MG Q6P PRN 08/20 2345 AC 08/21 PO 0634 Ampicillin Sodium/ 3,000 MG Q6 08/21 06 AC 08/23 Sulbactam Sodium IV 0526 Sodium Chloride 100 ML Aspirin Buffered 325 MG DAILY 08/21 899 AC 08/23 PO 0825 Clonazepam 2 MG QPM 08/20 2345 AC 08/22 PO 08/27 2344 2103 Enoxaparin Sodium 40 MG DAILY 08/21 899 AC 08/23 SC 0824 Hyoscyamine 0.375 MG QPM 08/21 2100 AC 08/22 PO 210 Ibuprofen 800 MG Q8P PRN 08/21 1030 AC 08/22 PO 1822 Melatonin 10 MG QPM 08/20 2345 AC 08/22 PO 2102 Oxycodone/ 2 TAB Q6P PRN 08/20 2345 AC 08/23 Acetaminophen PO 0825 Trazodone HCl 300 MG QPM 08/21 2100 AC 08/22 PO 210 Last 24 Hrs of Lab/Flaco Results Last 24 Hrs of Labs/Mics: Laboratory Tests 08/23/17 0632: CBC w Diff NO MAN DIFF REQ, RBC 4.19 L, MCV 82.2, MCH 27.2, MCHC 33.0, RDW 15.0 H, MPV 9.2, Gran % 37.0 L, Lymphocytes % 47.6, Monocytes % 8.1, Eosinophils % 6.7 H, Basophils % 0.6, Absolute Granulocytes 1.2 L, Absolute Lymphocytes 1.5, Absolute Monocytes 0.3, Absolute Eosinophils 0.2, Absolute Basophils 0 Assessment/Plan Assessment: Ene Faulkner is a 62-year-old female with a past medical history of hypertension, GERD, IBS, obesity, presented to the ED with a one-week history of right hand pain, tenderness, erythema, swelling. Being treated for cellulitis that failed outpatient therapy. Differentials include Cellulitis, Osteomyelitis, Erysipalas, Compartment syndrome (doubt), Necrotizing fasciitis (doubt), Cat Scratch, Abscess #Cellulitis failed outpatient therapy: Resolving, stable for discharge, will be switched to p.o. medication. -Was switched to p.o. Augmentin, to complete course upon discharge. -Xray shows no evidence of osteomyelitis, no evidence of acute trauma -Continues to be afebrile, no leukocytosis, no systemic signs #Back Pain -will restart home meds Discharge today to home. DVT ppx + ALPS Disposition Regular Diet IV Access: Peripheral IV Full Code Problem List: 1. Cellulitis Pain Ratin Pain Location: Right hand and lower back chronic Pain Goal: Pain 4 or less Pain Plan: PRN, home meds Tomorrow's Labs & Rationales: NA Discharge Plan Discharge Disposition: home Stable for Discharge? Yes Anticipated Discharge (Day): today AndreyAmanda 08/23/17 1147: Attending MD Review Statement Attending Statement Attending MD Statement: examined this patient, discuss w/resident/PA/CHAIR MAKER, agreed w/resident/PA/CHAIR MAKER, discussed with family, reviewed EMR data (avail), discussed with nursing, discussed with case mgmt, reviewed images, amended to note Attending Assessment/Plan: Patient medically improved since admission. Her hand swelling and pain has decreased significantly. Patient can be discharged home on PO antibiotics. Need to follow up with her PCP in 1 week of discharge.
[2017-08-23] MEDS ORDERED: AUGMENTIN 875-1 EACH PO ×3 (08:06→11:20)
--- NOTE | 2017-08-23 08:07 | Patient Discharge Instructions ---
Discharge Instructions General Discharge Information Special Instructions: - Please follow up with your primary care physician within 1-2 weeks of discharge. Inform your primary care physician of this admission to [facility]. - Continue your current medications per discharge instructions. - Please watch for these problems: Fever, Chills, Nausea, Vomiting, Shortness of Breath, Productive Cough, Chest Pain/Discomfort, Abdominal Pain, Active Bleeding or Bloody urine/stool. Diet Continue normal diet: Yes Activity Full Activity/No Limits: Yes Acute Coronary Syndrome Inclusion Criteria At DC or during hospital stay patient has or had the following: ACS DIAGNOSIS No Discharge Core Measures Meds if any: Prescribed or Continued at Discharge Meds if any: NOT Prescribed or Continued at Discharge Congestive Heart Failure Inclusion Criteria At DC or during hospital stay patient has or had the following: CHF DIAGNOSIS No Discharge Core Measures Meds if any: Prescribed or Continued at Discharge Meds if any: NOT Prescribed or Continued at Discharge Cerebrovascular accident Inclusion Criteria At DC or during hospital stay patient has or had the following: CVA/TIA Diagnosis No Discharge Core Measures Meds if any: Prescribed or Continued at Discharge Meds if any: NOT Prescribed or Continued at Discharge Venous thromboembolism Inclusion Criteria VTE Diagnosis No VTE Type NONE VTE Confirmed by (Test) NONE Discharge Core Measures - Per Current guidelines, there needs to be overlap - treatment for the first 5 days of Warfarin therapy. - If discharged on Warfarin prior to 5 days of - overlap therapy, the patient will need to be - assessed for post discharge needs including - *Post discharge parental anticoagulation - *Warfarin and/or parental anticoagulation education - *Follow up date to check INR post discharge At least 5 days overlap therapy as Inpatient No Meds if any: Prescribed or Continued at Discharge Note: Overlap Therapy is Warfarin and Anticoagulant Meds if any: NOT Prescribed or Continued at Discharge
[2017-08-23 08:22] LABS: ABSOLUTE BASOPHIL COUNT 0 /CUMM (0.0-0.2); ABSOLUTE EOSINOPHIL COUNT 0.2 /CUMM (0.0-0.7); ABSOLUTE GRANULOCYTE CT 1.2 /CUMM (1.4-6.5); ABSOLUTE LYMPH COUNT 1.5 /CUMM (1.2-3.4); ABSOLUTE MONOCYTE COUNT 0.3 /CUMM (0.10-0.60); BASOPHIL % 0.6 % (0.0-2.0); EOSINOPHIL % 6.7 % (0-5); HEMATOCRIT 34.5 % (37-47); MEAN CORPUSCULAR HGB 27.2 PG (27.0-31.0); MEAN CORPUSCULAR VOLUME 82.2 FL (81.0-99.0); MEAN PLATELET VOLUME 9.2 FL (7.4-10.4); PLATELET COUNT 182 /CUMM (130-400); RED BLOOD CELL CT 4.19 /CUMM (4.20-5.40); WHITE BLOOD CELL COUNT 3.2 /CUMM (4.8-10.8)
[2017-08-23] MEDS ORDERED: OXYCODONE-ACET1 EAC1 PO ×2 (09:17→10:56)
--- NOTE | 2017-08-23 15:48 | Discharge Summary ---
See Addendum Visit Information Visit Dates Admission Date: 08/20/17 Discharge Date: 08/23/17 Hospital Course Course Attending Physician: Andrey LOPEZ,[facility] Primary Care Physician: Amos LOPEZ,[facility] Course: Ene Faulkner is a 62-year-old female with a past medical history of hypertension, GERD, IBS, obesity, presented to the ED with a one-week history of right hand pain, tenderness, erythema, swelling. Patient states that she thought she either burned, or had an insect bite, interspace region between her first and second digit of her right hand. She cannot remember discrete puncture or trauma to the region. Her hand, however began to turn red, and had some localized swelling. The skin also began to slough off. She decided to go to an urgent care center on Wednesday, where she received a tetanus shot and prescribed her Bactrim for 4 days. She completed the course, however her hand continued to swell, and started extending proximally towards the wrist, the pain increased, and the hand became "hotter". She came to the ED as she was worried that she might have necrotizing fasciitis. Onsetapproximately 1 week ago. Progressively getting worse. Provocation/palliationoxycodone helps the pain. Patient has back issues and her prescribed oxycodone comes the pain for her. Qualitypatient describes the pain as "achy" Radiationthe pain travels from the interspace region between the first and second digit into the digits themselves, has not traveled approximately towards the wrist. Severitypain was initially a 3, has progressed to a 6 or a 7 currently Timepain is constant, does not wax or wane. Has not noticed a temporal relationship with the pain. On admission, Vitals: Stable afebrile, BP 134/88, saturating 98% on RA Physical exam -Gen.: AO x3, cooperative, no distress, -HEENT: NCAT, PERRL, EOMI, anicteric sclera, moist mucous membranes -Cardio: Normal S1/S2 without significant murmurs/gallops/rubs -Pulmonary: grossly normal air movement w/ clear auscultation -Abdomen: Soft, nontender, nondistended, bowel sounds intact -Neuro: Awake and alert, cranial nerves II through XII grossly intact -Extremity: R hand swelling w/ mild tenderness on palpation, along w/ elevation of skin temperature, clear demarkation of swelling at wrist level, sensations grossly intact, fingers ROM mildly restricted however mostly due to pain. Other extremities are Normal pulses/capillary refill, no cyanosis/clubbing/edema -CBC: Mild leukopenia 4.1, H/H stable, otherwise unremarkable -BMP: Unremarkable -Hand X-ray: Swelling in the right hand, most notably at the thumb. No acute osseous abnormalities. -EKG: NSR w/o significant ST-T abnormalities. -Interventions in ER: Unasyn x 1 She was admitted to general medicine, started on Unasyn 3 g every 6 IV, and hand was monitored for sensation deficits or swelling or tenderness or decreased range of motion. She tolerated IV antibiotics very well, blood cultures had no growth, swelling and pain resolved. Wound cultures were not drawn, as it did not seem severe, no systemic symptoms, no purulence noted. She remained afebrile, without leukocytosis or systemic signs. She did not have any more swelling or erythema, and each day the swelling and erythema diminished. She was discharged after 3 days of IV Unasyn, with outpatient Augmentin prescribed for 4 days. She was given strict return precautions, will have close follow-up with her primary care. Allergies: Coded Allergies: metronidazole (From FLAGYL) (Severe, RASH 08/20/17) cephalexin (From KEFLEX) (HANDS AND FEET HOT 06/07/15) levofloxacin (From LEVAQUIN) (SUPRA-PUBIC PAIN 06/07/15) Disposition Summary Disposition Principal Diagnosis: Right hand cellulitis Additional Diagnosis: Chronic lower back pain Discharge Disposition: home or self care Discharge Instructions General Discharge Information Code Status: Full Code Patient's Diet: As tolerated Patient's Activity: As tolerated Follow-Up Instructions/Appts: - Please follow up with your primary care physician within 1-2 weeks of discharge. Inform your primary care physician of this admission to [facility]. - Continue your current medications per discharge instructions. - Please watch for these problems: Fever, Chills, Nausea, Vomiting, Shortness of Breath, Productive Cough, Chest Pain/Discomfort, Abdominal Pain, Active Bleeding or Bloody urine/stool. Medications at Discharge Discharge Medications: Continue taking these medications: Trazodone HCl (Trazodone HCl) 300 MG TABLET 1 Tablet ORAL Every night Comments: Last Taken:06/11/15 Time: 10 PM Clonazepam (Clonazepam) 2 MG TABLET 1 Tablet ORAL Every night Comments: PER PT Naloxegol Oxalate (Movantik) 12.5 MG TABLET 1 Tablet ORAL as needed for GI Qty = 30 Aspirin (Ecotrin*) 325 MG TABLET.DR 1 Tablet ORAL DAILY Melatonin (Melatonin) 10 MG CAPSULE 1 Capsule ORAL DAILY Hyoscyamine (Levsin) 0.125 MG TABLET 1 Tablet ORAL THREE TIMES DAILY Qty = 60 Start taking the following new medications: Amoxicillin/Potassium Clav (Augmentin 875-125 Tablet) 875 MG-125 MG TABLET 1 Tablet ORAL TWICE DAILY Qty = 8 No Refills Instructions: . The following medications have been changed: Old: Oxycodone HCl/Acetaminophen (Oxycodone-Acetaminophen 10-325) 10 MG-325 MG TABLET 1 Tablet ORAL 4 times daily as needed as needed for PAIN Qty = 5 New: Oxycodone HCl/Acetaminophen (Oxycodone-Acetaminophen 10-325) 10 MG-325 MG TABLET 1 Tablet ORAL 4 times daily as needed as needed for PAIN Qty = 5 Instructions: . Copies To: Amos LOPEZ,Aristeo
== END 2017-08-23 15:15 | DRG 603 ==
LOC: ERH 17:14 → ERHI 23:01 → 2NB 23:01 → ENRESERV 08-21 00:28 → 2NB 08-21 01:00 → ENPENDDIS 08-23 11:02 → 2NB 08-23 13:10
PROVIDERS: General Practice; Physician Assistant Medical
DX: L03.113 Cellulitis of right upper limb (principal); G89.29 Other chronic pain; M54.9 Dorsalgia, unspecified; I10 Essential (primary) hypertension; K21.9 Gastro-esophageal reflux disease without esophagitis; K58.9 Irritable bowel syndrome, unspecified; E66.9 Obesity, unspecified
CPT/HCPCS: 2NBP; ERO; 36415; 36592; 73130-RT; 82436; 87040; 93005; 93010; 96374; J1650